=== PATIENT | male | born 1935 | race Caucasian/White ===

== ENCOUNTER → 2021-06-09 | Outpatient (CLI) | payer OTHER ==
[~2021-06-09] MED LIST: ALLO100 PO; ASCO500 PO; ASPI81EC PO; CALMAGZIN PO; CEPH500 PO; HYDURE500 PO; INDO25 PO; MULVITA PO; Norco 5-325 Ta1 EACH PO; OXYACE5T PO; TOCO400 PO; WARF5 PO
== END | disposition home or self-care (01) ==
LOC: LAB SHORT 08:10 → LAB 08:10
DX: L57.0 Actinic keratosis (principal)
CPT/HCPCS: 88305

== ENCOUNTER → 2021-08-18 | Outpatient (CLI) | payer OTHER | END | disposition home or self-care (01) | LOC: LAB SHORT 07:59 | DX: C44.329 Squamous cell carcinoma of skin of other parts of face (principal) | CPT/HCPCS: 88305 ==

== ENCOUNTER → 2022-09-26 | Outpatient (CLI) | payer OTHER | LOC: LAB 08:06 → LAB SHORT 08:06 | DX: C44.622 Squamous cell carcinoma of skin of right upper limb, including shoulder (principal) | CPT/HCPCS: 88305 ==

== ENCOUNTER 2023-08-07 21:06 | Emergency (ER) | payer OTHER ==
[~2023-08-07] VITALS: Ht 172.7 cm; Wt 61.2 kg
[2023-08-07 21:35] LABS: Source, Urine Voided
[2023-08-07 21:38] LABS: BASOPHILS ABSOLUTE AUTO 0.03 K/mm3 (0.00-0.23); BASOPHILS PERCENT AUTO 0 % (0-2); EOSINOPHILS PERCENT AUTO 0 % (0-6); Hematocrit 33.5 % (37.0-53.0); Hemoglobin 11.3 g/dL (13.5-17.5); IMMATURE GRAN PERCENT AUTO 2 % (0-1); LYMPHOCYTES ABSOLUTE AUTO 0.61 K/mm3 (0.84-5.20); LYMPHOCYTES PERCENT AUTO 5 % (21-46); MONOCYTES ABSOLUTE AUTO 0.53 K/mm3 (0.16-1.47); MONOCYTES PERCENT AUTO 4 % (4-13); Mean Corpuscular HGB 37.4 pg (26.0-34.0); Mean Corpuscular HGB Conc 33.7 g/dL (31.5-36.5); Mean Corpuscular Volume 111 fL (80-100); Mean Platelet Volume 9.7 fL (9.1-12.4); NEUTROPHILS ABSOLUTE AUTO 11.21 K/mm3 (1.96-9.15); NEUTROPHILS PERCENT AUTO 89 % (41-73); Platelet Count 469 K/mm3 (150-400); RDW Coefficient Variation 16.3 % (11.7-14.2); RDW Standard Deviation 66.4 fL (35.1-46.3); Red Blood Cell Count 3.02 M/mm3 (4.30-5.90); White Blood Cell Count 12.58 K/mm3 (4.00-11.30)
[2023-08-07 21:47] LABS: Appearance, Urine Cloudy (Clear); Bilirubin, Urine Neg (Neg); Blood, Urine 4+ (Neg); Color, Urine Yellow (P-Yellow); Glucose Qualitative, Urine Neg (Neg); Ketones, Urine Neg (Neg); Leukocyte Esterase, Urine 3+ (Neg); Nitrite, Urine Neg (Neg); Protein, Urine 3+ (Neg); Specific Gravity, Urine 1.015 (1.003-1.022); Urobilinogen, Urine NORM (Normal)
[2023-08-07 21:57] LABS: Red Blood Cells, Urine 0-2 /hpf (0-2); Squamous Epithelial Cells Rare /hpf (Few); White Blood Cells, Urine TNTC /hpf (0-5)
[2023-08-07 21:58] LABS: Bacteria Many /hpf; Mucus Light (0-Heavy)
[2023-08-07 22:01] LABS: Bilirubin, Total 0.6 mg/dL (0.1-1.0); Bun/Creatinine Ratio 30.1 (12.0-20.0); Calcium, Blood 8.4 mg/dL (8.5-10.1); Creatinine, Blood 1.03 mg/dL (0.60-1.20); Globulin, Blood 3.1 g/dL (2.2-4.0); Potassium, Blood 4.4 mmol/L (3.5-5.5); Total Protein, Blood 6.1 g/dL (6.4-8.2)
[2023-08-07 22:17] LABS: Influenza A, PCR NEGATIVE (NEGATIVE); Influenza B, PCR NEGATIVE (NEGATIVE); Resp Syncytial Virus, PCR NEGATIVE (NEGATIVE); SARS-Cov-2 (COVID-19) PCR, MMC NEGATIVE (NEGATIVE)
[2023-08-07 22:45] VITALS: BP 109/53
[2023-08-07] MEDS ORDERED: CEFP200 PO (23:29)
== END 2023-08-08 00:19 | disposition home or self-care (01) ==
LOC: ER 21:06
PROVIDERS: Student in an Organized Health Care Education/Training Program
DX: N39.0 Urinary tract infection, site not specified (principal); D72.829 Elevated white blood cell count, unspecified; M10.9 Gout, unspecified; Z88.6 Allergy status to analgesic agent; Z79.01 Long term (current) use of anticoagulants; Z79.899 Other long term (current) drug therapy
CPT/HCPCS: 0241U; 36415; 80053; 81001; 83605; 85025; 87040; 87077; 87086; 87186; 93005; 93010; 96361; 96365; 99285-25; J0696; J7030

== ENCOUNTER → 2023-08-31 | Outpatient (CLI) | payer OTHER ==
[~2023-08-31] MED LIST changes: +CEFP200 PO
== END | disposition home or self-care (01) ==
LOC: LAB 09:09 → LAB SHORT 09:09
DX: D04.39 Carcinoma in situ of skin of other parts of face (principal)
CPT/HCPCS: 88305

== ENCOUNTER → 2023-09-17 | Outpatient (CLI) | payer OTHER | LOC: LAB SHORT 11:45 → PLD 11:45 | DX: C41.0 Malignant neoplasm of bones of skull and face (principal); L57.0 Actinic keratosis; L82.0 Inflamed seborrheic keratosis | CPT/HCPCS: 88305 ==

== ENCOUNTER → 2023-09-19 | Outpatient (CLI) | payer OTHER | LOC: LAB 15:20 → LAB SHORT 15:20 | DX: N39.0 Urinary tract infection, site not specified (principal) | CPT/HCPCS: 87077; 87086; 87186 ==

== ENCOUNTER 2023-09-25 08:53 | Emergency (ER) | payer OTHER ==
[~2023-09-25] VITALS: Ht 172.7 cm; Wt 56.7 kg
[2023-09-25 09:22] LABS: BASOPHILS ABSOLUTE AUTO 0.06 K/mm3 (0.00-0.23); BASOPHILS PERCENT AUTO 1 % (0-2); EOSINOPHILS ABSOLUTE AUTO 0.03 K/mm3 (0.00-0.68); EOSINOPHILS PERCENT AUTO 0 % (0-6); Hematocrit 32.4 % (37.0-53.0); Hemoglobin 10.9 g/dL (13.5-17.5); IMMATURE GRAN PERCENT AUTO 2 % (0-1); LYMPHOCYTES PERCENT AUTO 5 % (21-46); MONOCYTES ABSOLUTE AUTO 0.65 K/mm3 (0.16-1.47); MONOCYTES PERCENT AUTO 5 % (4-13); Mean Corpuscular HGB 36.9 pg (26.0-34.0); Mean Corpuscular HGB Conc 33.6 g/dL (31.5-36.5); Mean Corpuscular Volume 110 fL (80-100); Mean Platelet Volume 10.7 fL (9.1-12.4); NEUTROPHILS ABSOLUTE AUTO 11.79 K/mm3 (1.96-9.15); NEUTROPHILS PERCENT AUTO 88 % (41-73); Platelet Count 394 K/mm3 (150-400); RDW Coefficient Variation 16.9 % (11.7-14.2); RDW Standard Deviation 68.4 fL (35.1-46.3); Red Blood Cell Count 2.95 M/mm3 (4.30-5.90); White Blood Cell Count 13.33 K/mm3 (4.00-11.30)
[2023-09-25 09:31] LABS: Source, Urine Clean Catch
[2023-09-25 09:34] LABS: Bilirubin, Urine Neg (Neg); Blood, Urine 1+ (Neg); Color, Urine Yellow (P-Yellow); Glucose Qualitative, Urine Neg (Neg); Ketones, Urine Neg (Neg); Leukocyte Esterase, Urine Neg (Neg); Nitrite, Urine Neg (Neg); Protein, Urine 2+ (Neg); Specific Gravity, Urine 1.015 (1.003-1.022); Urobilinogen, Urine NORM (Normal)
[2023-09-25 09:44] LABS: Appearance, Urine Hazy (Clear)
[2023-09-25 09:45] LABS: Amorphous Mod (0-Heavy); Bacteria Mod /hpf; Squamous Epithelial Cells Few /hpf (Few)
[2023-09-25 09:47] LABS: Hyaline Casts 0-2 /lpf (0-2); Mucus Light (0-Heavy)
[2023-09-25 12:02] LABS: Albumin, Blood 2.2 g/dL (3.4-5.0); Albumin/Globulin Ratio 0.6 (0.8-1.8); Bilirubin, Total 0.4 mg/dL (0.1-1.0); Bun/Creatinine Ratio 52.4 (12.0-20.0); Calcium, Blood 8.4 mg/dL (8.5-10.1); Creatinine, Blood 0.9 mg/dL (0.60-1.20); Globulin, Blood 3.4 g/dL (2.2-4.0); Potassium, Blood 4.4 mmol/L (3.5-5.5); Total Protein, Blood 5.6 g/dL (6.4-8.2)
[2023-09-26] MEDS ORDERED: TAMSULOSIN HCL0.4 M1 PO (07:16)
[2023-09-26] MEDS ORDERED: KLOR-CON 1010 ME9 PO (07:17)
[2023-09-26] MEDS ORDERED: FUROSEMIDE40 MG PO (07:17)
[2023-09-26] MEDS ORDERED: DONEPEZIL HCL5 M2 PO (07:17)
[2023-09-26 17:52] VITALS: BP 111/77
== END 2023-09-26 17:52 ==
LOC: ER 08:53
PROVIDERS: Student in an Organized Health Care Education/Training Program
DX: N39.0 Urinary tract infection, site not specified (principal); Z88.6 Allergy status to analgesic agent; Z79.899 Other long term (current) drug therapy; Z79.01 Long term (current) use of anticoagulants; M10.9 Gout, unspecified
CPT/HCPCS: 70450; 71046; 80053; 81001; 85025; 87086; 93005; 93010; 96365; 97110; 97116; 97162; 99285-25; A9270; J0696; J7030

== ENCOUNTER 2023-10-01 15:40 | Inpatient (IN) | payer OTHER ==
[~2023-10-01] VITALS: Ht 172.7 cm; Wt 63.7 kg
[~2023-10-01 15:40] MED LIST changes: +DONEPEZIL HCL5 M2 PO; +FUROSEMIDE40 MG PO; +KLOR-CON 1010 ME9 PO; +TAMSULOSIN HCL0.4 M1 PO
[2023-10-01 18:28] LABS: C-REACTIVE PROTEIN, EXT RANGE 12.5 mg/dL (0.000-0.300)
[2023-10-01 18:29] LABS: BASOPHILS ABSOLUTE AUTO 0.13 K/mm3 (0.00-0.23); BASOPHILS PERCENT AUTO 1 % (0-2); EOSINOPHILS ABSOLUTE AUTO 0.18 K/mm3 (0.00-0.68); EOSINOPHILS PERCENT AUTO 1 % (0-6); Hemoglobin 11.5 g/dL (13.5-17.5); IMMATURE GRAN ABSOLUTE AUTO 0.83 K/mm3 (0.00-0.10); IMMATURE GRAN PERCENT AUTO 4 % (0-1); LYMPHOCYTES ABSOLUTE AUTO 1.08 K/mm3 (0.84-5.20); LYMPHOCYTES PERCENT AUTO 5 % (21-46); MONOCYTES ABSOLUTE AUTO 0.64 K/mm3 (0.16-1.47); MONOCYTES PERCENT AUTO 3 % (4-13); Mean Corpuscular HGB 36.4 pg (26.0-34.0); Mean Corpuscular HGB Conc 31.9 g/dL (31.5-36.5); Mean Corpuscular Volume 114 fL (80-100); Mean Platelet Volume 10.7 fL (9.1-12.4); NEUTROPHILS ABSOLUTE AUTO 19.25 K/mm3 (1.96-9.15); NEUTROPHILS PERCENT AUTO 87 % (41-73); Platelet Count 599 K/mm3 (150-400); RDW Coefficient Variation 17.1 % (11.7-14.2); RDW Standard Deviation 70.7 fL (35.1-46.3); Red Blood Cell Count 3.16 M/mm3 (4.30-5.90); White Blood Cell Count 22.11 K/mm3 (4.00-11.30)
[2023-10-01 18:32] LABS: Albumin, Blood 2.1 g/dL (3.4-5.0); Albumin/Globulin Ratio 0.6 (0.8-1.8); Bilirubin, Total 0.4 mg/dL (0.1-1.0); Bun/Creatinine Ratio 37.9 (12.0-20.0); Creatinine, Blood 2.24 mg/dL (0.60-1.20); Globulin, Blood 3.4 g/dL (2.2-4.0); Potassium, Blood 4.7 mmol/L (3.5-5.5); Total Protein, Blood 5.5 g/dL (6.4-8.2)
[2023-10-01 18:45] LABS: Source, Urine Straight Cath
[2023-10-01 18:48] LABS: Appearance, Urine Clear (Clear); Bilirubin, Urine Neg (Neg); Blood, Urine Neg (Neg); Color, Urine Yellow (P-Yellow); Glucose Qualitative, Urine Neg (Neg); Ketones, Urine Neg (Neg); Leukocyte Esterase, Urine Neg (Neg); Nitrite, Urine Neg (Neg); Protein, Urine Neg (Neg); Specific Gravity, Urine 1.015 (1.003-1.022); Urobilinogen, Urine NORM (Normal)
[2023-10-01 20:47] LABS: Influenza A, PCR NEGATIVE (NEGATIVE); Influenza B, PCR NEGATIVE (NEGATIVE); Resp Syncytial Virus, PCR NEGATIVE (NEGATIVE); SARS-Cov-2 (COVID-19) PCR, MMC NEGATIVE (NEGATIVE)
[2023-10-01 23:49] LABS: Automated CSF WBC Count 0.015 K/mm3 (0-5)
[2023-10-01 23:56] LABS: Automated CSF WBC Count 0.003 K/mm3 (0-5)
[2023-10-02] VITALS (29 sets, daily range): BP systolic 80–144; BP diastolic 43–115
[2023-10-02 00:15] LABS: WBC Count, CSF 15 /mm3 (0-5); WBC Count, CSF 3 /mm3 (0-5)
[2023-10-02 00:49] LABS: Color, CSF Pink (No Color); RBC Count, CSF 1425 /mm3 (0-0)
[2023-10-02 00:50] LABS: Appearance, CSF Hazy (Clear)
[2023-10-02 01:13] LABS: Appearance, CSF Clear (Clear); Color, CSF No Color (No Color); RBC Count, CSF 353 /mm3 (0-0)
[2023-10-02 01:39] LABS: Cryptococcus Neoformans/Gattii Not Detected (NOT DETECT); Enterovirus Not Detected (NOT DETECT); Escherichia Coli K1 Not Detected (NOT DETECT); Haemophilus Influenza Not Detected (NOT DETECT); Herpes Simplex Virus 1 Not Detected (NOT DETECT); Herpes Simplex Virus 2 Not Detected (NOT DETECT); Human Herpesvirus 6 Not Detected (NOT DETECT); Human Parechovirus Not Detected (NOT DETECT); Listeria Monocytogenes Not Detected (NOT DETECT); Neisseria Meningitidis Not Detected (NOT DETECT); Streptococcus Agalactiae Not Detected (NOT DETECT); Streptococcus Pneumoniae Not Detected (NOT DETECT); Varicella Zoster Virus Not Detected (NOT DETECT)
[2023-10-02 01:48] LABS: Glucose, CSF 71 mg/dL (40-70)
[2023-10-02 08:42] LABS: BASOPHILS PERCENT AUTO 1 % (0-2); EOSINOPHILS ABSOLUTE AUTO 0.21 K/mm3 (0.00-0.68); EOSINOPHILS PERCENT AUTO 1 % (0-6); Hematocrit 32.8 % (37.0-53.0); IMMATURE GRAN ABSOLUTE AUTO 0.56 K/mm3 (0.00-0.10); IMMATURE GRAN PERCENT AUTO 4 % (0-1); LYMPHOCYTES ABSOLUTE AUTO 0.78 K/mm3 (0.84-5.20); LYMPHOCYTES PERCENT AUTO 5 % (21-46); MONOCYTES ABSOLUTE AUTO 0.45 K/mm3 (0.16-1.47); MONOCYTES PERCENT AUTO 3 % (4-13); Mean Corpuscular HGB 36.4 pg (26.0-34.0); Mean Corpuscular HGB Conc 30.5 g/dL (31.5-36.5); NEUTROPHILS ABSOLUTE AUTO 13.58 K/mm3 (1.96-9.15); NEUTROPHILS PERCENT AUTO 87 % (41-73); RDW Coefficient Variation 17.1 % (11.7-14.2); RDW Standard Deviation 74.5 fL (35.1-46.3); Red Blood Cell Count 2.75 M/mm3 (4.30-5.90); White Blood Cell Count 15.68 K/mm3 (4.00-11.30)
[2023-10-02 08:59] LABS: Mean Corpuscular Volume 119 fL (80-100); Mean Platelet Volume 10.8 fL (9.1-12.4); Platelet Count 426 K/mm3 (150-400)
[2023-10-02 09:08] LABS: Alanine Aminotransfer (ALT/SGP 21 U/L (12-78); Albumin, Blood 1.9 g/dL (3.4-5.0); Albumin/Globulin Ratio 0.6 (0.8-1.8); Alk Phos 82 U/L (50-136); Anion Gap 7 mmol/L (6-16); Aspartate Aminotrans (AST/SGOT 23 U/L (12-37); Bilirubin, Total 0.3 mg/dL (0.1-1.0); Blood Urea Nitrogen 65 mg/dL (8-24); Bun/Creatinine Ratio 47.1 (12.0-20.0); CO2, Blood 18 mmol/L (21-32); Calcium, Blood 7.3 mg/dL (8.5-10.1); Chloride, Blood 121 mmol/L (98-108); Creatinine, Blood 1.38 mg/dL (0.60-1.20); Globulin, Blood 3.1 g/dL (2.2-4.0); Glomerular Filtration Rate 49 (60-); Glucose, Blood 99 mg/dL (70-99); Potassium, Blood 4.3 mmol/L (3.5-5.5); Sodium, Blood 146 mmol/L (136-145); Vancomycin, Random 14.9 ug/mL
[2023-10-02] MEDS ORDERED: ASCO500 PO (17:24)
[2023-10-02] MEDS ORDERED: ASPI81CH PO (17:24)
[2023-10-02] MEDS ORDERED: MULVITA PO (17:25)
--- NOTE | 2023-10-02 17:55 | NUR ---
PT ARRIVES TO ICU 9 FROM ER AT 1200. PT OPENS EYE'S WHEN SPOKEN TO AND WILL ANSWER SOME QUESTIONS APPROPRIATLEY. PT IS SENSITIVE TO ANY MOVEMENT. NECK IS STIFF AND STUCK WITH HEAD TOWARDS THE R SIDE. STATES HE HAS ALSO BEEN SENSITIVE TO SOUNDS WHICH IS UNUSUAL FOR HIM. BP IMPROVED AFTER RECEIVING IVF. HAVE NOT STARTED LEVOPHED. PT WILL BE GOING FOR MRI OF THE NECK THIS EVENING. PT HAS OPEN AREA TO COCCYX WITH EXCORIATION T/O PERIAREA. CLEANSED AND MEPILEX PLACED. WOUND PHOTOS TO CHART. NO SIGN OF DISTRESS.
--- NOTE | 2023-10-02 19:50 | NUR ---
ASSUMED CARE OF PT AT 1915 PT JUST BACK FROM MRI WITH DAY SHIFT RN. PT RESTING IN BED DURING BEDSIDE SHIFT REPORT. MAP OF 67 AT THIS TIME. LEVO ON STAND BY. PT EXTREMELY PAINFUL WITH ANY MOVEMENT. NS STARTED AT THIS TIME AT 100 MLS/HR. SEE FULL ASSESSMENT FOR FURTHER INFORMATION.
[2023-10-03] VITALS (52 sets, daily range): BP systolic 76–125; BP diastolic 45–103
[2023-10-03 03:19] LABS: BASOPHILS ABSOLUTE AUTO 0.12 K/mm3 (0.00-0.23); BASOPHILS PERCENT AUTO 1 % (0-2); EOSINOPHILS PERCENT AUTO 1 % (0-6); Hematocrit 34.8 % (37.0-53.0); Hemoglobin 10.6 g/dL (13.5-17.5); IMMATURE GRAN ABSOLUTE AUTO 0.26 K/mm3 (0.00-0.10); IMMATURE GRAN PERCENT AUTO 1 % (0-1); LYMPHOCYTES ABSOLUTE AUTO 0.89 K/mm3 (0.84-5.20); LYMPHOCYTES PERCENT AUTO 5 % (21-46); MONOCYTES ABSOLUTE AUTO 0.68 K/mm3 (0.16-1.47); MONOCYTES PERCENT AUTO 4 % (4-13); Mean Corpuscular HGB 35.8 pg (26.0-34.0); Mean Corpuscular HGB Conc 30.5 g/dL (31.5-36.5); Mean Corpuscular Volume 118 fL (80-100); Mean Platelet Volume 10.5 fL (9.1-12.4); NEUTROPHILS ABSOLUTE AUTO 17.21 K/mm3 (1.96-9.15); NEUTROPHILS PERCENT AUTO 90 % (41-73); Platelet Count 695 K/mm3 (150-400); RDW Coefficient Variation 17.2 % (11.7-14.2); RDW Standard Deviation 73.8 fL (35.1-46.3); Red Blood Cell Count 2.96 M/mm3 (4.30-5.90); White Blood Cell Count 19.26 K/mm3 (4.00-11.30)
[2023-10-03 03:42] LABS: Albumin, Blood 1.9 g/dL (3.4-5.0); Albumin/Globulin Ratio 0.6 (0.8-1.8); Bilirubin, Total 0.3 mg/dL (0.1-1.0); Bun/Creatinine Ratio 44.8 (12.0-20.0); C-REACTIVE PROTEIN, EXT RANGE 11.6 mg/dL (0.000-0.300); Calcium, Blood 7.8 mg/dL (8.5-10.1); Creatinine, Blood 1.16 mg/dL (0.60-1.20); Globulin, Blood 3.2 g/dL (2.2-4.0); Total Protein, Blood 5.1 g/dL (6.4-8.2)
[2023-10-03 07:20] LABS: Bicarbonate Venous 18.2 mmol/L (24.0-30.0); PCO2 Venous 27.6 mmHg (38-42); pH Blood Venous 7.38 (7.34-7.37)
--- NOTE | 2023-10-03 07:28 | NUR ---
END OF SHIFT SUMMARY PT A/O X1. RESPONDS TO HIS NAME BEING CALLED. MUMBLES INCHERENTLY. 2 L NC INITIATED THIS AM D/T DESATS TO MID 80'S. MULTIPLE ECTOPY EPISODES THIS AM. PROMPTING CALL TO HOSPITALIST. ORDERS INTIATED DIRECTED. LEVO AT 3 MCG SEE NURSING DOCUMENTATION ON ALL OTHER CONCERNS. REPORT GIVEN TO AM RN.
[2023-10-03 12:30] LABS: Vancomycin, Random 13.6 ug/mL
--- NOTE | 2023-10-03 16:00 | NUR ---
COMFORT CARE DR. DHILLON TO BEDSIDE TO DISCUSS PATIENT'S MEDICAL CASE WITH AND DAUGHTER. PROGNOSIS PROVIDED. FAMILY IN AGREEMENT THAT COMOFRT CARE WOULD BE PATIENT'S WISHES. PALLIATIVE CARE TO BEDSIDE TO DISCUSS HOSPICE AND COMFORT CARE WITH FAMILY. ORDERS PLACED, TELE DC'D.
--- NOTE | 2023-10-03 17:10 | NUR ---
Pt haja arrived they spoke with physician about plan of care. Family decided to place pt on comfort care and proceed with hospice care. Reviewed hospice with family. They are seeking placement with [facility]. Pt may be to frail to transfer out. Will see haow he feels tonight. Review of symptoms and high olga for uncontrolled secretions and potential nause.
--- NOTE | 2023-10-03 17:44 | NUR ---
SHIFT SUMMARY PATIENT ON COMFORT CARE AND MEDICATED PER EMAR. SEE PREVIOUS NOTES. FAMILY AT BEDSIDE.
--- NOTE | 2023-10-03 20:46 | NUR ---
ASSUMPTION OF CARE BEDSIDE SHIFT REPORT RECEIVED FROM DAY SHIFT RN. PT RESTING IN BED, RESPONSIVE TO VERBAL STIMULI. PT SPEECH IS MUMBLED AND DIFFICULT TO UNDERSTAND. PT ON RA, OXYGEN SATURATION >90%. PT MOANS OUT WITH MOVEMENT/REPOSITIONING, MEDICATED PER EMAR. MITCHELL IN PLACE PATENT DRAINING TO GRAVITY. BED IN LOWEST POSITION, CARE CONTINUES.
--- NOTE | 2023-10-04 05:31 | NUR ---
SHIFT SUMMARY PT RESTING IN BED, RESPONSIVE TO VERBAL STIMULI, SPEECH IS MUMBLED AND HARD TO UNDERSTAND AT TIMES. PT ON RA, OXYGEN SATURAITON >90%. PT YELLS OUT WITH REPOSITIONING, VERY STIFF AND WEAK. MEDICATED FOR PAIN PER EMAR. PIV TO RIGHT HAND, RIGHT FOREARM, AND LEFT UPPER ARM SL. MITCHELL IN PLACE PATENT DRAINING TO GRAVITY. BED IN LOWEST POSITION, CARE CONINUES.
--- NOTE | 2023-10-04 11:28 | NUR ---
"Spiritual Care Visit | Comfort Care Pt. Pt. is comfort care amd is somnolent and mostly non responsive. Spouse and daughter are present and welcome my visit. Facilitate a life review regarding the Pt. Considered matters of family and laura. Family are pleasant and receptive of spiritual care. As the Pt./family experience is normalized the family requested information about homes, and decided that [facility] is the fuenral home they will choose for services. Will remain available to the Pt. and family and will plan to visit at 15:00 today to bless the Pt. (before the Pts. daughter returns home to [place])."
--- NOTE | 2023-10-04 14:11 | NUR ---
Spiritual Care Visit. Per a previous visit, it was agreed that I would return at bedside and give a blessing for the Pt. Pt. is somnolent and mostly not responsive. With Spouse and daughter joining at bedside prayers are made for the Pt. Soon after prayer the Pt. opened his eyes and began to talk with family who are present. Family verbalized gratitude for the spiritual care visit, and welcomed this director of casino marketing to return.
--- NOTE | 2023-10-04 15:29 | NUR ---
TRANSFER NOTE- PT ARRIVED ON MEDICAL FLOOR. PAIN SEEMS TO BE VERY EVIDENT POST ROXANOL, WITH REPOSITIONING AND GETTING THE PT TRANSFERED TO THE BED. PT IS IN THE BED, EGG CRATE IN PLACE TO HELP WITH PRESSURE RELIEF, PT ROTATED TO LEFT BACK. PER REPORT FROM THE CLERICAL ASSIGNER THE PT FAMILY HAS BEEN AT THE BEDSIDE, THEY STEPPED AWAY FOR A BREAK AT THE TIME OF TRANSFER. REQUESTED A COMFORT CART FROM DIETARY.
--- NOTE | 2023-10-04 17:54 | NUR ---
TRANSFER PT TRANSFERRED TO 325 VIA BED. PT'S AND DAUGHTER AT THE BEDSIDE WHEN PT LEFT ROOM AND AWARE OF NEW ROOM NUMBER. PT MEDICATED FOR PAIN BEFORE TRANSFER. HE HAS CONTINUED TO APPEAR COMFORTABLE AND RELAXED WHEN NOT BEING MOVED. WITH TURNS HE MOANS AND YELLS OUT IN PAIN. PT HAS BEEN MORE ALERT THIS AFTERNOON AND ABLE TO TALK WITH HIS FAMILY BEFORE THE TRANSFER. ALL BELONGINGS TRANSFERRED WITH PT.
--- NOTE | 2023-10-04 19:24 | NUR ---
SHIFT SUMMARY- PT WAS TRANSFERED TO MEDICAL FLOOR FROM ICU. HE WAS RESTLESS AND MOANING AND GROANIN WITH PAIN. MEDICATED WITH ROXANOL, THEN SPOKE TO PALLIATIVE CARE RN ANEL. MEDICATED PT WITH ADDITIONAL ROXANOL WITH ATIVAN MIXED. PT SEEMS MORE RELAXED AT THIS TIME. BEDSIDE REPORT COMPLETED WITH NIGHT RN. RESPIRATIONS SEEM TO BE SONOROUS, R/T PT HEAD POSITIONING, D/T PAIN HE IS UNWILLING TO MOVE HIS HEAD WITHOUGHT SCREAMING IN PAIN. NIGHT RN AWARE.
--- NOTE | 2023-10-04 21:10 | NUR ---
PT IS ON COMFORT CARE DNR, PT IS SOMNOLENT MOANS/GROANS W GRIMACE WHEN TURNED CALLS OUT BRIEFLY W REPOSITONING, RESPIRATIONS AUDIBLE FROM DOOR, PT BRIEFLY OPENS EYES STATING "NO", BED LOWERED IN FLAT POSITION ELEVATING CAUSES PAIN, CALL IGHT IN REACH WILL CONTINUE TO MONITOR
--- NOTE | 2023-10-05 04:41 | NUR ---
SHIFT SUMMARY PATIENT ON COMFORT CARE. SOMNOLENT MOAN/GROANING WITH GRIMACE WHEN REPOSITIONED. NON-VERBAL UNLESS TURNED AND WILL CALL OUT WITH 1-2 WORDS. NPO. ROXANOL GIVEN T/O SHIFT PER EMAR. BEDREST. PIVS REMAIN INTACT. CALL LIGHT IN REACH. BED IN LOWEST POSITION AND ALARM ACTIVATED. WILL CONTINUE TO MONITOR UNTIL DAY SHIFT NURSE ASSUMES CARE.
--- NOTE | 2023-10-05 08:52 | NUR ---
PT NOTIFIED AT 0800 PT WAS DECLINING FAST AND MAY WANT TO COME TO HOSPITAL. SHE REPORTED SHE WAS ON HER WAY. THOMAS WAS CHECKED ON AGAIN AT 0835 AND NOTED TO HAVE NO RR, NO HR X 1 MINUTE, NO PULSES. PUPILS WERE FIXED. PALLIATIVE CARE, SPIRITUAL CARE, DR. JONES NOTIFIED OF TOD. ARRIVED SHORTLY AFTER THOMAS PASSED. EMOTIONAL SUPPORT GIVEN. SON AND DAUGHTER NOTIFIED PER HER REQUEST.
--- NOTE | 2023-10-05 11:29 | NUR ---
Spiritual Care Support. [[facility]] Pt. had passed. SPouse is present and welcomes my visit. Palliative Care nurse Kayleen is an encouraging presence and provides end of life services with a blanket, figure print, lock of hair and assistance in removal of the Pts. wedding band. Spouse is waiting for Pts. son to arrive from [place]. Provide an on-going life review and encourage story-telling. When son arrives promote a sense of peace and provide son with EOL education. Spouse and son verbalize gratitude for spiritual care and Spouse hugged this director mortgage when I departed. Family will stay for a short while and have been instructed to let nurses know when they are leaving. No other visitors are ecpected. Spouse has chosen [facility] for home.
== END 2023-10-05 08:35 | DRG 292 ==
LOC: ER 15:40 → ICUE 10-02 00:22 → ERHOLD 10-02 00:22 → ICUE 10-02 11:52 → MEDS 10-04 15:24 → ENPENDDIS 10-05 08:35 → MEDS 10-05 08:35
PROVIDERS: Family Medicine; Student in an Organized Health Care Education/Training Program; ADMIT Student in an Organized Health Care Education/Training Program
PROC: 009U3ZX Drainage of Spinal Canal, Percutaneous Approach, Diagnostic (ICD-10-PCS; principal; 2023-10-02)
PROC: 3E033XZ Introduction of Vasopressor into Peripheral Vein, Percutaneous Approach (ICD-10-PCS; 2023-10-02)
DX: R57.9 Shock, unspecified (principal); D75.81 Myelofibrosis; E87.0 Hyperosmolality and hypernatremia; N17.9 Acute kidney failure, unspecified; E87.20 Acidosis, unspecified; Z51.5 Encounter for palliative care; E86.0 Dehydration; M10.9 Gout, unspecified; N40.0 Benign prostatic hyperplasia without lower urinary tract symptoms; H26.9 Unspecified cataract; R33.9 Retention of urine, unspecified; D53.9 Nutritional anemia, unspecified; M54.2 Cervicalgia; G30.9 Alzheimer's disease, unspecified; F02.80 Dementia in other diseases classified elsewhere, unspecified severity, without behavioral disturbance, psychotic disturbance, mood disturbance, and anxiety; Z88.6 Allergy status to analgesic agent; Z87.19 Personal history of other diseases of the digestive system; Z85.831 Personal history of malignant neoplasm of soft tissue; Z11.52 Encounter for screening for COVID-19
CPT/HCPCS: 0241U; 31720; 36415; 51702; 51798; 62270; 70450; 71045; 72126; 72156; 76770; 80053; 80202; 81003; 82803; 82945; 83605; 83735; 84157; 85025; 85651; 86140; 87040; 87070; 87205; 87483; 89051; 93005; 93010; 94762; 96361-59; 96365-59; 96366-59; 96367-59; 96372-59; 96375-59; 96376-59; 99285-25; A9270; A9579; J0290; J0696; J1650; J2060; J2270; J2405; J3010; J3360; J3370; J7030; J7042; J7050; J7060; J8499; Q9967